=== PATIENT | male | born 1995 | race Caucasian/White ===

== ENCOUNTER 2020-12-20 01:39 | Emergency (ER) | payer SELFPAY ==
[~2020-12-20] VITALS: Ht 185.4 cm; Wt 74.0 kg
[2020-12-20] MEDS ORDERED: HYDROcodone/APAP 5/325 TABLET PO PRN (02:30)
[2020-12-20] MEDS ORDERED: KETOROLAC 30 MG/1 ML IM ONE (02:30)
[2020-12-20] MEDS ORDERED: KETOROLAC 60 MG/2 ML ONE (02:40)
--- NOTE | 2020-12-20 02:52 | NUR ---
friend at bedside. patient in NAD. resting comfortably. testicle examined and redenned and swollen. painful to palpation. toradol administered IM per order. call maldonado in reach. safety maintained. patient wanted friend at bedside to stay in room during exam
--- NOTE | 2020-12-20 03:00 | NUR ---
US at bedside
--- NOTE | 2020-12-20 03:30 | NUR ---
patient ambulated to bathroom with steady gait and mild pain. in NAD. VS remain stable on RA
[2020-12-20] MEDS ORDERED: HYDROcodone/APAP 5/325 TABLET ONE (03:40)
[2020-12-20 03:46] LABS: MICROSCOPIC INDICATED
[2020-12-20] MEDS ORDERED: CEFTRIAXONE 1,000 MG IM ONE (04:00)
[2020-12-20] MEDS ORDERED: CEFTRIAXONE 1,000 MG ONE (04:16)
--- NOTE | 2020-12-20 04:20 | NUR ---
RN discussed IM injection mixture with Dr. Gusman. Dr. Gusman stated this med did not need lido mixture to inject. patient educated on reasoning for medication and how it was to be administered.
--- NOTE | 2020-12-20 04:35 | NUR ---
discharge instructions reviewed with patient. no further questions at this time. prescription handed directly to patient. VS remain stable on RA. Ice pack provided for IM injection site discomfort patient stated pain in scrotum had subsided and IM injection site had decreased significantly upon dc. friend with patient at time of dc. no IV placed during this visit. ambulated with steady gait to [place]. all personal belongings with patient
[2020-12-20 05:08] VITALS: BP 133/89
== END 2020-12-20 05:11 | disposition home or self-care (01) ==
LOC: ED 04:00
DX: N30.00 Acute cystitis without hematuria (principal); N45.1 Epididymitis; N50.811 Right testicular pain; Z88.0 Allergy status to penicillin; F17.200 Nicotine dependence, unspecified, uncomplicated
CPT/HCPCS: 76870; 81001; 87086; 87491; 87591; 96372; 99284; J0696; J1885